=== PATIENT | female | born 1995 | race American Indian/Alaskan Native ===

== ENCOUNTER 2018-12-01 04:38 | Emergency (ER) | payer MEDICAID ==
[2018-12-01 05:07] VITALS: BP 115/67
[2018-12-01] MEDS ORDERED: TYLENOL ONE (05:13)
[2018-12-01] MEDS ORDERED: TYLENOL PO STA (05:14)
[2018-12-01] MEDS ORDERED: NACL 0.9% 500 ML 500 ML IV ONE (05:14)
[2018-12-01 05:55] LABS: Basophils % (Auto) 0.3 % (0.0-1.8); Hematocrit 41.4 % (30.3-42.9); Hemoglobin 14.1 gm/dl (10.1-14.3); Lymphocytes # (Auto) 0.7 K/mm3 (1.2-5.4); Lymphocytes % (Auto) 9.7 % (13.4-35.0); Mean Corpuscular HGB Conc 34 % (30-34); Mean Corpuscular Volume 90 fl (79-97); Monocytes # (Auto) 0.5 K/mm3 (0.0-0.8); Monocytes % (Auto) 7.7 % (0.0-7.3); Platelet Count 193 K/mm3 (140-440); Red Blood Count 4.61 M/mm3 (3.65-5.03); Red Cell Distribution Width 14.2 % (13.2-15.2)
[2018-12-01 06:06] LABS: INR 0.8 (0.87-1.13)
[2018-12-01 06:26] LABS: Alanine Aminotransferase 13 units/L (7-56); Albumin 4.4 g/dL (3.9-5); BUN/Creatinine Ratio 17; Blood Urea Nitrogen 10 mg/dL (7-17); Calcium 9.6 mg/dL (8.4-10.2); Hemolysis Index 1
== END 2018-12-01 06:33 | disposition left against medical advice (07) ==
LOC: ED 04:38
DX: J11.1 Influenza due to unidentified influenza virus with other respiratory manifestations (principal); Z53.21 Procedure and treatment not carried out due to patient leaving prior to being seen by health care provider
CPT/HCPCS: 36415; 80053; 82140; 82805; 85025; 85610; 87040